=== PATIENT | female | born 1970 | race Caucasian/White ===

== ENCOUNTER 2016-07-23 08:31 | Emergency (ER) | payer BC, OTHER ==
[~2016-07-23] VITALS: Ht 157.5 cm; Wt 67.8 kg
[~2016-07-23 08:31] MED LIST: ALBU18HF INHALATION; IBUP-1542 PO
[2016-07-23 08:37] VITALS: Ht 157.5 cm; Wt 67.8 kg
[2016-07-23] MEDS ORDERED: ONDANSETRON 4 MG INJ IV STA (08:49)
[2016-07-23] MEDS ORDERED: morphine 4 MG/ML VIAL IV STA (08:49)
--- NOTE | 2016-07-23 08:56 | ERD ---
ER Documentation Chief Complaint Date/Time DATE: 07/23/16 TIME: 08:52 Chief Complaint ap , hx gallstones HPI This 45-year-old female who presents to the emergency department today complaining of abdominal pain since yesterday. Patient states that she also has some dysuria as well as some vaginal bleeding. Denies being . States her last menstrual cycle was on July 16, 2016. States that she does have a history of gallstones and that she has an appointment scheduled on July [address] Plasencia, general surgeon. States she has had some nausea but no vomiting. States she has taken Bentyl. ROS All systems reviewed and are negative except as per history of present illness. Medications Home Meds Active Scripts Ondansetron Hcl* (Zofran*) 4 Mg Tablet, 4 MG PO Q6H for NAUSEA AND/OR VOMITING, #30 TAB Prov:NESTOR LANGFORDC 07/23/16 Ibuprofen* (Motrin*) 600 Mg Tab, 600 MG PO Q6, #30 TAB Prov:NESTOR LANGFORDC 07/23/16 Acetaminophen* (Tylophen*) 500 Mg Capsule, 1 CAP PO Q6H Y for PAIN AND OR ELEVATED TEMP, #30 CAP Prov:NESTOR LANGFORDC 07/23/16 Cephalexin* (Keflex*) 500 Mg Capsule, 500 MG PO QID for 7 Days, CAP Prov:NESTOR LANGFORDC 07/23/16 Ibuprofen* (Motrin*) 600 Mg Tab, 600 MG PO Q6, #20 TAB Prov:NESTOR LANGFORDC 09/12/15 Albuterol Sulfate* (Ventolin HFA*) 18 Gm Hfa.aer.ad, 2 PUFF INHALATION Q4H, #1 INHALER Prov:NESTOR LANGFORDC 09/12/15 Allergies Allergies: Coded Allergies: No Known Allergy (Verified , 11/25/11) PMhx/Soc History of Surgery: Yes () Anesthesia Reaction: No Hx Neurological Disorder: No Hx Respiratory Disorders: Yes (Asthma) Hx Cardiac Disorders: No Hx Psychiatric Problems: No Hx Miscellaneous Medical Probl: No Hx Alcohol Use: No Hx Substance Use: No Hx Tobacco Use: No Physical Exam Vitals Vital Signs Date Time Temp Pulse Resp B/P Pulse Ox O2 Delivery O2 Flow Rate FiO2 07/23/16 08:37 98.2 100 18 125/83 99 Physical Exam Const: mild distress Head: Atraumatic Eyes: Normal Conjunctiva ENT: Normal External Ears, Nose and Mouth. Neck: Full range of motion..~ No meningismus. Resp: Clear to auscultation bilaterally Cardio: Regular rate and rhythm, no murmurs Abd: Soft, diffuse left sided abdominal pain non distended. Normal bowel sounds. No right upper quadrant pain. Skin: No petechiae or rashes Back: No midline or flank tenderness. No CVA tenderness. Ext: No cyanosis, or edema Neur: Awake and alert Psych: Normal Mood and Affect Result Diagram: 07/23/16 0932 07/23/16 0849 Results 24 hrs Laboratory Tests Test 07/23/16 08:49 07/23/16 09:03 07/23/16 09:32 Sodium Level 137mmol/L Potassium Level 3.9mmol/L Chloride Level 104mmol/L Carbon Dioxide Level 27mmol/L Anion Gap 10 Blood Urea Nitrogen 13mg/dl Creatinine 0.64mg/dl Glucose Level 92mg/dl Calcium Level 8.8mg/dl Total Bilirubin 0.5mg/dl Direct Bilirubin 0.00mg/dl Indirect Bilirubin 0.5mg/dl Aspartate Amino Transf (AST/SGOT) 30IU/L Alanine Aminotransferase (ALT/SGPT) 28IU/L Alkaline Phosphatase 82IU/L Total Protein 7.4g/dl Albumin 4.2g/dl Globulin 3.20g/dl Albumin/Globulin Ratio 1.31 Lipase 17U/L Urine Color DK. RED Urine Clarity CLEAR Urine pH 6.0 Urine Specific [place] 1.020 Urine Ketones NEGATIVE Urine Nitrite NEGATIVE Urine Bilirubin NEGATIVE Urine Urobilinogen 0.2 E.U./dL Urine Leukocyte Esterase 3+ Urine Microscopic RBC >200/HPF Urine Microscopic WBC 10-25/HPF Urine Squamous Epithelial Cells FEW Urine Bacteria MODERATE Urine Hemoglobin 3+ Urine Glucose NEGATIVE% Urine Total Protein 2+ White Blood Count 12.110^3/ul Red Blood Count 4.6710^6/ul Hemoglobin 13.0g/dl Hematocrit 39.4% Mean Corpuscular Volume 84.4fl Mean Corpuscular Hemoglobin 27.8pg Mean Corpuscular Hemoglobin Concent 33.0g/dl Red Cell Distribution Width 13.2% Platelet Count 61387^3/UL Mean Platelet Volume 10.9fl Neutrophils % 76.4% Lymphocytes % 14.5% Monocytes % 6.0% Eosinophils % 2.1% Basophils % 0.7% Nucleated Red Blood Cells % 0.0/100WBC Neutrophils # 9.210^3/ul Lymphocytes # 1.810^3/ul Monocytes # 0.710^3/ul Eosinophils # 0.310^3/ul Basophils # 0.110^3/ul Nucleated Red Blood Cells # 0.010^3/ul Current Medications Medications (Trade) Dose Ordered Sig/Micki Route PRN Reason Start Time Stop Time Status Last Admin Dose Admin Morphine Sulfate (morphine) 4 mg ONCE STAT IV 07/23/16 08:49 07/23/16 08:52 DC 07/23/16 09:19 Ondansetron HCl (Zofran Inj) 4 mg ONCE STAT IV 07/23/16 08:49 07/23/16 08:52 DC 07/23/16 09:19 DIAGNOSTIC IMAGING REPORT Patient: ERASMO DINH : 1970 Age: 45 Sex: F MR #: [id number] DOS: 07/23/16 0849 Ordering MD: NESTOR LANGFORD PA-C Location: [facility] Room/Bed: PROCEDURE: CT Abdomen and pelvis without contrast. CLINICAL INDICATION: Right upper quadrant abdominal pain for 6 months. History of gallstones and vaginal bleeding. TECHNIQUE: CT scan of the abdomen and pelvis with contrast was performed on a multidetector high-resolution CT scan. . Coronal and sagittal reformatted images were obtained from the axial source images. Standard CT scan of the abdomen pelvis without contrast protocols were performed. The total exam CTDI equals 9.41 mGy and the total exam DLP equals 504.6 mGy-cm. One or more of the following dose reduction techniques were used: - Automated exposure control. - Adjustment of the mA and/or kV according to patient size. Use of iterative reconstruction technique. COMPARISON: None. FINDINGS: There are 4 faceted calcified gallstones present without gallbladder wall thickening or pericholecystic fluid. There is no evidence of biliary ductal dilation. The liver is mildly enlarged without focal hepatic lesions. The spleen pancreas and adrenal glands are normal in size configuration without focal lesions. The kidneys are normal in size without calcified renal calculi, hydronephrosis or intrarenal masses bilaterally. The urinary bladder is unremarkable. The uterus is anteflexed but otherwise unremarkable. There are low localized low densities in the posterior right left adnexal regions which may represent an ovarian cyst. A pelvic ultrasound is suggested if clinically indicated. The stomach, small bowel and large bowel are unremarkable. The appendix is unremarkable. Negative for intra-abdominal free air or free fluid or lymphadenopathy. The aorta is unremarkable. There is minimal degenerative changes lumbar spine. There are no acute osseous findings are osteoblastic/osteolytic lesions. The lung bases are unremarkable. The lower thoracic abdominal and pelvic crouch are unremarkable. IMPRESSION: 1. 4 faceted calcified gallstones without gallbladder wall thickening or pericholecystic fluid. No evidence biliary ductal dilation. 2. Localized low densities in the right left adnexal regions likely ovarian cyst. A pelvic ultrasound may be helpful for further evaluation. 3. No evidence of calcified renal calculi or hydronephrosis bilaterally. 4. Unremarkable appendix. RPTAT:AAJJ Physician Noel Date Time Electronically viewed and signed by Physician Noel on 07/23/2016 09:52 BM/ CC: NESTOR LANGFORD PA-C Procedures/[facility] This a 45-year-old female who presents the emergency department today complaining of diffuse abdominal pain that started yesterday. On physical exam patient had diffuse left sided abdominal pain. She does not have right upper quadrant pain although she has a history of gallstones. Patient also reported some unusual vaginal bleeding and therefore did obtain a urine test as well as laboratory work and a CT abdomen pelvis noncontrast Laboratory work shows a very mildly elevated white blood cell count. She is not anemic. Platelets are within normal limits. Electrolytes are within normal limits. Glucose is within normal limits. Liver functions within normal limits. Lipase is within normal limits per UA shows 3+ leukocyte esterase. Greater than 1200 microscopic red blood cells. 10-25 microscopic white blood cells. Urine test is negative. Low suspicion for tubo-ovarian abscess, ovarian torsion, ectopic CT abdomen pelvis noncontrast for faceted calcified gallstones without gallbladder wall thickening or pericholecystic fluid. No evidence of biliary ductal dilatation. Localized low densities in the right and left adnexal regions which may represent an ovarian cyst. There is no evidence of calcified renal calculi or hydronephrosis bilaterally. Unremarkable appendix. Stomach, small bowel and large bowel are unremarkable. Patient does have a history of gallstones however there is no evidence of gallbladder wall thickening or pericholecystic fluid. Low suspicion for nephrolithiasis or pyelonephritis. Patient is afebrile and otherwise well- appearing. She has no CVA tenderness. Patient symptoms at this time most consistent with abdominal pain with hematuria and urinary tract infection, acute cystitis. She was given morphine and Zofran here in the emergency department and symptoms improved. Patient given a prescription for Keflex, Tylenol, Motrin and Zofran. She was instructed to follow-up with Dr. Plasencia as scheduled later this month to follow- up about her gallstones. At this time the patient is stable for discharge and outpatient management. Patient should follow up with their PCP in the next 1-2 days. They may return to the emergency department sooner for any persistent or worsening of symptoms. Patient understood and agreed with the plan. Discussed the patient with Dr. Haider and he is in agreement with the plan. Departure Diagnosis: Primary Impression: Abdominal pain Abdominal location: generalized Qualified Code: R10.84 - Generalized abdominal pain Additional Impression: UTI (urinary tract infection) Urinary tract infection type: site unspecified Hematuria presence: with hematuria Qualified Code: N39.0 - Urinary tract infection with hematuria, site unspecified Condition: Fair NESTOR LANGFORD PA-C Jul 23, 2016 08:56
[2016-07-23 09:38] LABS: ADD SCAN DIFF NO
[2016-07-23 09:41] LABS: BASOPHIL # 0.1 10^3/ul (0.0-0.1); BASOPHILS % 0.7 % (0.0-2.0); EOSINOPHILS # 0.3 10^3/ul (0.0-0.5); EOSINOPHILS % 2.1 % (0.0-7.0); HEMATOCRIT 39.4 % (37.0-47.0); LYMPHOCYTES # 1.8 10^3/ul (0.8-2.9); LYMPHOCYTES % 14.5 % (15.0-51.0); MEAN CORPUSCULAR HEMOGLOBIN 27.8 pg (29.0-33.0); MEAN CORPUSCULAR VOLUME 84.4 fl (82.0-101.0); MEAN PLATELET VOLUME 10.9 fl (7.4-10.4); MONOCYTE # 0.7 10^3/ul (0.3-0.9); NEUTROPHIL # 9.2 10^3/ul (1.6-7.5); NEUTROPHILS % 76.4 % (39.0-77.0); PLATELET COUNT 268 10^3/UL (140-415); RED BLOOD COUNT 4.67 10^6/ul (4.20-5.40); RED CELL DISTRIBUTION WIDTH 13.2 % (11.5-14.5); WHITE BLOOD COUNT 12.1 10^3/ul (4.8-10.8)
[2016-07-23 09:42] LABS: ADD UMIC YES; URINE BILIRUBIN (Dip) NEGATIVE (NEGATIVE); URINE BLOOD (Dip) 3+ (NEGATIVE); URINE COLOR DK. RED (YELLOW); URINE GLUCOSE (Dip) NEGATIVE (NEGATIVE); URINE KETONES (Dip) NEGATIVE (NEGATIVE); URINE LEUKOCYTE ESTERASE (Dip) 3+ (NEGATIVE); URINE NITRITE (Dip) NEGATIVE (NEGATIVE); URINE TOTAL PROTEIN (Dip) 2+ (NEGATIVE); URINE UROBILINOGEN (Dip) 0.2 E.U./dL (0.1-1.0)
--- NOTE | 2016-07-23 09:52 | RADRPT ---
PROCEDURE: CT Abdomen and pelvis without contrast. CLINICAL INDICATION: Right upper quadrant abdominal pain for 6 months. History of gallstones and vaginal bleeding. TECHNIQUE: CT scan of the abdomen and pelvis with contrast was performed on a multidetector high-r esolution CT scan. . Coronal and sagittal reformatted images were obtained from the axial source i mages. Standard CT scan of the abdomen pelvis without contrast protocols were performed. The total exam CTDI equals 9.41 mGy and the total exam DLP equals 504.6 mGy-cm. One or more of the following dose reduction techniques were used: - Automated exposure control. - Adjustment of the mA and/or kV according to patient size. Use of iterative reconstruction technique. COMPARISON: None. FINDINGS: There are 4 faceted calcified gallstones present without gallbladder wall thickening or pericholecys tic fluid. There is no evidence of biliary ductal dilation. The liver is mildly enlarged without f ocal hepatic lesions. The spleen pancreas and adrenal glands are normal in size configuration witho ut focal lesions. The kidneys are normal in size without calcified renal calculi, hydronephrosis or intrarenal masses bilaterally. The urinary bladder is unremarkable. The uterus is anteflexed but otherwise unremarkable. There are low localized low densities in the posterior right left adnexal r egions which may represent an ovarian cyst. A pelvic ultrasound is suggested if clinically indicate d. The stomach, small bowel and large bowel are unremarkable. The appendix is unremarkable. Negative for intra-abdominal free air or free fluid or lymphadenopathy. The aorta is unremarkable. There is minimal degenerative changes lumbar spine. There are no acute osseous findings are osteobl astic/osteolytic lesions. The lung bases are unremarkable. The lower thoracic abdominal and pelvic crouch are unremarkable. IMPRESSION: 1. 4 faceted calcified gallstones without gallbladder wall thickening or pericholecystic fluid. No evidence biliary ductal dilation. 2. Localized low densities in the right left adnexal regions likely ovarian cyst. A pelvic ultraso und may be helpful for further evaluation. 3. No evidence of calcified renal calculi or hydronephrosis bilaterally. 4. Unremarkable appendix. RPTAT:AAJJ Physician Noel Date Time Electronically viewed and signed by Physician Noel on 07/23/2016 09:52 BM/
[2016-07-23 09:53] LABS: ALBUMIN 4.2 g/dl (3.3-4.9)
[2016-07-23 09:54] LABS: POTASSIUM 3.9 mmol/L (3.5-5.1)
[2016-07-23 09:55] LABS: CREATININE 0.64 mg/dl (0.44-1.00)
[2016-07-23 09:56] LABS: ALBUMIN/GLOBULIN RATIO 1.31; BILIRUBIN,INDIRECT 0.5 mg/dl (0-1.1); BILIRUBIN,TOTAL 0.5 mg/dl (0.2-1.3); TOTAL PROTEIN 7.4 g/dl (6.1-8.1)
[2016-07-23 09:57] LABS: CALCIUM 8.8 mg/dl (8.4-10.2)
[2016-07-23 10:18] LABS: BACTERIA,URINE MODERATE; SQUAMOUS EPITHELIAL CELL,UR FEW; URINE RBCS >200 /HPF (0)
[2016-07-23] MEDS ORDERED: CEPH-443 PO (10:33)
[2016-07-23] MEDS ORDERED: ACET500C5 PO (10:34)
[2016-07-23] MEDS ORDERED: IBUP-1542 PO (10:34)
[2016-07-23] MEDS ORDERED: ONDA4TAB8 PO (10:34)
[2016-07-23 11:15] VITALS: BP 121/68; PULSE 80; RESP 18; TEMP 98.8
== END 2016-07-23 11:15 | disposition home or self-care (01) ==
LOC: FTE 08:31
DX: R10.84 Generalized abdominal pain (principal); N39.0 Urinary tract infection, site not specified; R11.0 Nausea; J45.909 Unspecified asthma, uncomplicated
CPT/HCPCS: 36415; 74176; 80053; 81001; 81003; 83690; 85025; 96374; 96375; J2270; J2405; Z7502

== ENCOUNTER 2016-08-30 08:18 | Day surgery (SDC) | payer OTHER ==
[2016-08-29 13:15] VITALS: BMI 27.3
[2016-08-30] VITALS (13 sets, daily range): BP systolic 127–153; BP diastolic 70–85; PULSE 68–108; RESP 8–27; Ht 160 cm; Wt 67.0 kg
[~2016-08-30] VITALS: Ht 160 cm; Wt 67.0 kg
[~2016-08-30 08:18] MED LIST changes: +ACET500C5 PO; +CEFAZOLIN 2 GM/50 ML (PMX) 50 ML IVPB ONE; +CEPH-443 PO; +ONDA4TAB8 PO; +SOD CHLORIDE 0.9% 1,000 ML IV SCH
[2016-08-30] MEDS ORDERED: FENTAnyl 50 MCG/ML VIAL ONE (09:45)
[2016-08-30] MEDS ORDERED: ROCURONIUM 50 MG INJ ONE (09:45)
[2016-08-30] MEDS ORDERED: SUCCINYLCHOLINE CHLORIDE 100 MG/5 ML SYG IV ONE (09:45)
[2016-08-30] MEDS ORDERED: PROPOFOL 20 ML ONE (09:45)
[2016-08-30] MEDS ORDERED: MIDAZOLAM 1 MG/ML 2 ML INJ ONE (09:45)
[2016-08-30] MEDS ORDERED: BUPIVACAINE 0.25% (MPF) 10 ML 10 ML VIAL ONE (09:49)
[2016-08-30] MEDS ORDERED: ROPIVACAINE 0.2% 20 ML VIAL ONE (09:51)
[2016-08-30] MEDS ORDERED: KETOROLAC 15 MG INJ IV ONE (10:00)
[2016-08-30] MEDS ORDERED: ONDANSETRON 4 MG INJ IV PRN (10:00)
[2016-08-30] MEDS ORDERED: MEPERIDINE 25 MG INJ IV PRN (10:00)
[2016-08-30] MEDS ORDERED: DIPHENHYDRAMINE 50 MG INJ IV PRN (10:00)
[2016-08-30] MEDS ORDERED: HYDROmorphONE (0.2 MG/ML) 10ML SYG IV PRN (10:00)
[2016-08-30] MEDS ORDERED: CEFAZOLIN 1 GM INJ ONE (10:40)
[2016-08-30] MEDS ORDERED: ONDANSETRON 4 MG INJ ONE (10:40)
[2016-08-30] MEDS ORDERED: FAMOTIDINE 20 MG INJ ONE (10:41)
[2016-08-30] MEDS ORDERED: DEXAMETHASONE 4 MG/ML 1 ML INJ ONE (10:41)
[2016-08-30] MEDS ORDERED: NEOSTIGMINE 3 MG/3 ML SYRINGE ONE (11:01)
[2016-08-30] MEDS ORDERED: GLYCOPYRROLATE 0.4 MG INJ ONE (11:01)
--- NOTE | 2016-08-30 11:08 | OPR ---
Date/Time of Note Date/Time of Note DATE: 08/30/16 TIME: 11:07 Operative Report Procedure Date: August 30, 2016 Preoperative Diagnosis symptomatic gallstones Postoperative Diagnosis same Operation Performed lap amanda therapeutic injection of subcutaneous marcaine Surgeon: Bev KEATING Anesthesia: general Specimens gallbladder Bev KEATING August 30, 2016 11:08
[2016-08-30] MEDS ORDERED: HYDROCODONE/APAP (5/325) TAB PO ONE (11:30)
[2016-08-30] MEDS: HYDROmorphONE (0.2 MG/ML) 10ML SYG IV PRN ×2 (11:43→11:48)
--- NOTE | 2016-08-30 11:43 | OPR ---
DATE OF OPERATION: 08/30/2016 INDICATION: This is a 46-year-old female with symptomatic gallstones. She requests surgical excisi on of her gallbladder. Risks, alternatives, benefits, and personnel were discussed with the patient . The patient expressed her understanding and consents to the operation. PREOPERATIVE DIAGNOSIS: Symptomatic gallstones. POSTOPERATIVE DIAGNOSIS: Symptomatic gallstones. OPERATIONS PERFORMED: 1. Laparoscopic cholecystectomy. 2. Therapeutic [place] [address]. SURGEON: Martha Welsh MD SPECIMENS: Gallbladder. COMPLICATIONS: None. ANESTHESIA: General. PROCEDURE: The patient was taken to the OR and prepped and draped in the usual sterile fashion. Mancini rgical timeout was performed. IV antibiotics were given. Infraumbilical incision was made transver sely with a 15 blade. Dissection cautery was carried down to the fascia which was divided with curv ed Martinez scissors. An 0 Vicryl U-stitch was placed in the fascia. Balloon Radha trocar was introdu pavel. Pneumoperitoneum established. Midepigastric 12 mm optical trocar and right upper quadrant and right upper flank 5 mm optical trocars were placed under direct visualization. Upon initial inspec tion, there were some adhesions to the gallbladder which were taken down bluntly. The cystic duct w as identified and critical view was established. The cystic duct and cystic artery are divided usin g a 35 mm [place] vascular load stapler. The staple line was reinforced with clips. Gallbladder wa s taken off the gallbladder bed. There was good hemostasis. The gallbladder was retrieved using En doCatch bag. Ports were removed under direct visualization, 0 Vicryl U-stitch was tied down. Skin was closed using skin jolanta. Local anesthesia was injected. Dry dressings were applied. Dictated By: MARTHA SUTHERLAND/ALPA Conf#: [id number] DID#: [id number]
== END 2016-08-30 13:20 | disposition home or self-care (01) ==
LOC: SDS 08:18
PROVIDERS: ATTEND Surgery
DX: K80.10 Calculus of gallbladder with chronic cholecystitis without obstruction (principal); J45.909 Unspecified asthma, uncomplicated
CPT/HCPCS: 47562; 84703; 88304; J0330; J0690; J1100; J1170; J2250; J2405; J2710; J2795; J3010; Z7512; Z7610; J7999

== ENCOUNTER 2016-09-06 16:46 | Emergency (ER) | payer OTHER ==
[~2016-09-06] VITALS: Ht 160 cm; Wt 67.0 kg
[~2016-09-06 16:46] MED LIST changes: -ACET500C5 PO; -CEFAZOLIN 2 GM/50 ML (PMX) 50 ML IVPB ONE; -CEPH-443 PO; -IBUP-1542 PO; -ONDA4TAB8 PO; -SOD CHLORIDE 0.9% 1,000 ML IV SCH
[2016-09-06 17:06] VITALS: Ht 160 cm; Wt 67.0 kg
--- NOTE | 2016-09-06 18:47 | ERD ---
ER Documentation Chief Complaint Date/Time DATE: 09/06/16 TIME: 18:40 Chief Complaint PAIN & BLEEDING FR SURGICAL WOUND, GALLBLADDER REMOVAL 8 DAYS AGO HPI 46-year-old female presented emergency room for surgical site bleeding. Patient had a cholecystectomy about 7 days ago here in [facility] that was done by Dr. Whittaker. She complains of surgical site (below her navel) bleeding and pain. Denies headache, dizziness, blurred vision, neck pain, shoulder pain, chest pain , abdominal pain, diarrhea, nausea, vomiting, changes in bowel and bladder habits, bowel and bladder incontinences, recent antibiotic use in the last 3 months, recent exposure to any illness, numbness, tingling sensation, fever, chills LMP: August 19, 2016. A0 Past medical history of asthma. Surgical history of and cholecystectomy. Medication: Unable to remember her medication at home. Social: Not working at this time. Denies smoking, use of alcohol, use of illegal drugs. ROS All systems reviewed and are negative except as per history of present illness. Medications Home Meds Active Scripts Albuterol Sulfate* (Ventolin HFA*) 18 Gm Hfa.aer.ad, 2 PUFF INHALATION Q4H, #1 INHALER Prov:NESTOR LANGFORD PA-C 09/12/15 Discontinued Scripts Ondansetron Hcl* (Zofran*) 4 Mg Tablet, 4 MG PO Q6H for NAUSEA AND/OR VOMITING, #30 TAB Prov:NESTOR LANGFORDC 07/23/16 Ibuprofen* (Motrin*) 600 Mg Tab, 600 MG PO Q6, #30 TAB Prov:NESTOR LANGFORDC 07/23/16 Acetaminophen* (Tylophen*) 500 Mg Capsule, 1 CAP PO Q6H Y for PAIN AND OR ELEVATED TEMP, #30 CAP Prov:NESTOR LANGFORDC 07/23/16 Cephalexin* (Keflex*) 500 Mg Capsule, 500 MG PO QID for 7 Days, CAP Prov:NESTOR LANGFORDC 07/23/16 Ibuprofen* (Motrin*) 600 Mg Tab, 600 MG PO Q6, #20 TAB Prov:NESTOR LANGFORDC 5/24/16 Allergies Allergies: Coded Allergies: No Known Allergy (Verified , 08/30/16) PMhx/Soc History of Surgery: Yes (C SECTION X1) Anesthesia Reaction: No Hx Neurological Disorder: No Hx Respiratory Disorders: Yes (ASTHMA) Hx Cardiac Disorders: No Hx Psychiatric Problems: No Hx Miscellaneous Medical Probl: No Hx Alcohol Use: No Hx Substance Use: No Hx Tobacco Use: No Physical Exam Vitals Vital Signs Date Time Temp Pulse Resp B/P Pulse Ox O2 Delivery O2 Flow Rate FiO2 09/06/16 17:06 99.8 80 22 135/75 98 Physical Exam CONSTITUTIONAL: Well-appearing; well-nourished; in no apparent distress. HEAD: Normocephalic; atraumatic. EYES: Conjunctiva clear, sclera non-icteric, EOM intact. PERRL Ears: Hearing intact. EACs clear, TMs non-bulging, non-inflamed, translucent & mobile, ossicles normal appearance, No obstructions, no erythema, no discharges Nose: No obstructions. No polyps. No external lesions. Mucosa non-inflamed. No external lesions, septum and turbinates normal. No rhinorrhea. No discharges. Frontal sinus is non-tender to palpation. Maxillary sinus is non-tender to palpation. MOUTH: Moist mucous membranes, no lesion, no obstructions, no vesicles, no thrush, patent airway Throat: Uvula in midline. Right tonsil is +1 with no erythema, no exudate. Left tonsil is +1 with no erythema, no exudate. Tolerating secretions well. Good gag reflex. Patent airway. Neck: Supple, without lesions, bruits, or adenopathy. No mass. Thyroid non- enlarged and non-tender to palpation. CHEST: Symmetrical chest. Respirations even and not labored. No retractions noted. CARDIOVASCULAR: Normal S1, S2. RRR. No murmurs, gallops. RESPIRATORY: Normal chest excursion with respiration; breath sounds clear and equal bilaterally; no wheezes, rhonchi, or rales. Breathing even and unlabored. Speaking in clear, full, and complete sentences w/ ease. ABDOMEN: Normal bowel sounds normal. Soft, round, non-distended, non-guarding, no tenderness, no rebound, no organomegaly, no masses, no pulsating abdominal mass. No hernia. No peritoneal signs. : No CVA tenderness. BACK: Symmetrical shoulder. Spine is midline without deformity, tenderness. No evidence of trauma or deformity. PELVIS: Stable pelvis. No evidence of trauma or deformity. MUSCULOSKELETAL: Normal gait and station. No misalignment, asymmetry, crepitation, defects, tenderness, masses, effusions, decreased range of motion, instability, atrophy or abnormal strength or tone in the head, neck, spine, ribs , pelvis or extremities. No calf tenderness. NEUROVASCULAR: Distal pulses are present. Pedal pulse are present, equal, and normal. Capillary refills are < 2 seconds. NEUROLOGIC: Alert and oriented x4. Speaks full and clear sentences. Cranial Nerves II-XII normal. Sensation to pain, touch, and proprioception normal. Grossly unremarkable. No neurologic deficits. Romberg test is negative. PSYCHOLOGICAL: The patients mood and manner are appropriate. No hallucinations , delusions. Not SI. Not HI. Has the capacity to decide for self SKIN: Normal for age and ethnicity; warm; dry; good turgor; no apparent lesions or exudates. No rashes, hives, discoloration. For lap sites with jolanta. Surgical site below the navel is approximately measuring 3-4 cm in length with 5 jolanta, With mild bleeding (to the right side) that has stopped. Procedures/MDM Examination: Please see physical examination. Disease process, medical treatment was explained to the patient and family member. They verbalized understanding and agreed with the diagnostic tests, medical treatment, and follow-up care. Treatment: Pressure dressing. Re-evaluation: Denies headache, dizziness, blurry vision, neck pain, shoulder pain, chest pain, back pain, abdominal pain. No episode of emesis in the emergency department. No active bleeding. No neurovascular deficits. No neurological deficits. No signs and symptoms of sepsis/hemorrhagic shock. Consultation: None. Differential diagnosis: Surgical site infection versus dehiscence versus bleeding Medical decision makin-year-old female presented emergency room for surgical site bleeding. Patient had a cholecystectomy about 7 days ago here in [facility] that was done by Dr. Whittaker. She complains of surgical site (below her navel) bleeding and pain. Patient's complaint, my physical findings, my reevaluation, Dr. Brower's examination I consistent with my final diagnosis of seroma. Medications prescribed are the following: None. Patient and family member are made aware of the side effects and adverse reactions of the medications prescribed. Instructed on when to seek emergent and medical attention in case allergic/anaphylactic reactions or severe side effects and or adverse reactions to medications. Patient and family member verbalized understanding. Patient instructed Instructed to follow-up with his PCP in 24-48 hours. Follow-up with surgeon in the next 24-48 hours. Instructed to Call 911 for chest pain, shortness of breath. Advised to come back here in ED as soon as possible for severity of symptoms which includes but not limited to: any new symptoms; shortness of breath/difficulty of breathing; cardiovascular changes; severe gastrointestinal symptoms; signs and symptoms of bleeding and or infection; signs of compartment syndrome/neurovascular changes; neurological changes/deficits. Patient and family member verbalized understanding. Upon discharge, patient is alert and oriented x 4, speaks full and clear sentences, denies pain, has no neurological deficits, has no neurovascular deficits, difficulty of breathing. Breathing even and unlabored. Lung sounds are clear to auscultation. Not in distress. Appears comfortable. Ambulatory with steady gait. Appears satisfied with care provided here in ED. Departure Diagnosis: Primary Impression: Seroma Condition: Stable Additional Instructions: Patient instructed Instructed to follow-up with his PCP in 24-48 hours. Follow-up with surgeon in the next 24-48 hours. Instructed to Call 911 for chest pain, shortness of breath. Advised to come back here in ED as soon as possible for severity of symptoms which includes but not limited to: any new symptoms; shortness of breath/difficulty of breathing; cardiovascular changes; severe gastrointestinal symptoms; signs and symptoms of bleeding and or infection; signs of compartment syndrome/neurovascular changes; neurological changes/deficits. Patient and family member verbalized understanding. TIMOTHY ANDREA September 06, 2016 18:47
[2016-09-06 18:53] VITALS: BP 120/86; PULSE 80; RESP 20; TEMP 98.6
== END 2016-09-06 18:53 | disposition home or self-care (01) ==
LOC: FTE 16:46
DX: K91.872 Postprocedural seroma of a digestive system organ or structure following a digestive system procedure (principal); J45.909 Unspecified asthma, uncomplicated
CPT/HCPCS: 99282

== ENCOUNTER 2017-11-10 08:56 | Day surgery (SDC) | END 2017-11-10 11:50 | disposition home or self-care (01) ==